=== PATIENT | male | born 1940 | race Caucasian/White ===

== ENCOUNTER 2025-08-30 15:29 | Inpatient (IN) ==
[2025-08-30 16:29] LABS: Basophils # (Auto) 0.02 K/mcL (0.00-0.30); Basophils % (Auto) 0.1 % (0.0-2.0); Eosinophils # (Auto) 0.16 K/mcL (0.00-0.70); Eosinophils % (Auto) 1.2 % (0.0-7.0); Hematocrit 52.5 % (40.1-51.0); Hemoglobin 17.5 g/dL (13.7-17.5); Lymphocytes # (Auto) 0.80 K/mcL (1.50-4.80); Lymphocytes % (Auto) 5.8 % (15.5-49.0); Mean Corpuscular HGB Conc 33.3 g/dL (31.0-36.0); Monocytes # (Auto) 2.24 K/mcL (0.10-0.90); Monocytes % (Auto) 16.1 % (1.0-12.0); Neutrophils % (Auto) 67.9 % (38.0-78.0); Platelet Count 112 K/mcL (140-440); RBC 5.09 M/mcL (4.63-6.08); WBC 13.9 K/mcL (4.5-11.0)
[2025-08-30 16:48] LABS: ALT/SGPT 57 U/L (<40); AST/SGOT 18 U/L (<40); Albumin 3.6 gm/dL (3.2-5.2); Albumin/Globulin Ratio 1.4 (1.0-2.3); Alkaline Phosphatase 67 U/L (39-117); Anion Gap 12.0 (8.0-16.0); Bilirubin,Total 1.2 mg/dL (0.1-1.0); Blood Urea Nitrogen 34 mg/dL (8-23); Calcium 9.5 mg/dL (8.6-10.4); Carbon Dioxide 27 mmol/L (22-30); Chloride 99 mmol/L (96-108); Globulin 2.5 gm/dL (2.2-3.7); Glucose 206 mg/dL (70-105); Potassium 4.6 mmol/L (3.3-5.1); Sodium 138 mmol/L (133-145)
[2025-08-30 16:49] LABS: Thyroid Stimulating Hormone 1.36 uIU/mL (0.27-5.01)
[2025-08-30 17:23] LABS: INR 1.1 (0.9-1.1); Prothrombin Time 15.0 sec (11.9-14.5)
[2025-08-30 18:17] LABS: Bilirubin,Urine NEGATIVE (Negative); Color,Urine LT. YELLOW; Glucose,Urine (UA) 250 mg/dL (Negative); Ketones,Urine NEGATIVE (Negative); Leukocyte Esterase,Urine NEGATIVE /uL (Negative); PH,Urine 6.5 (5.0-9.0); Protein,Urine TRACE mg/dL (Negative); Specific Gravity,Urine 1.010 (1.000-1.035); Urobilinogen,Urine 0.2 mg/dL
[2025-08-30] MEDS: DOXYCYCLINE 100 MG in DEXTROSE 5% IN WATER 100 ML IV ONE (18:47)
[2025-08-30] MEDS: FUROSEMIDE 40 MG/4 ML VIAL IV ONE (18:47)
[2025-08-30] MEDS ORDERED: MAG HYDROX/AL HYDROX/SIMETH 30 ML ORAL.SUSP PO PRN (20:58)
[2025-08-30] MEDS ORDERED: IPRATROPIUM/ALBUTEROL 3 ML AMPUL.NEB NEB PRN (20:58)
[2025-08-30] MEDS ORDERED: ONDANSETRON 4 MG/2 ML VIAL IV PRN (20:58)
[2025-08-30] MEDS: LACTATED RINGERS 1,000 ML IV SCH (21:06)
[2025-08-30] MEDS: 0.9 % SODIUM CHLORIDE 10 ML SYRINGE IV SCH (21:10)
[2025-08-30] MEDS: LEVOFLOXACIN 750 MG/150 ML BAG IV SCH (21:21)
[2025-08-30] MEDS: SENNOSIDES 1 TABLET PO SCH (21:26)
[2025-08-30] MEDS: APIXABAN 2.5 MG TABLET PO SCH (21:26)
[2025-08-30] MEDS: IPRATROPIUM/ALBUTEROL 3 ML AMPUL.NEB NEB SCH (22:24)
[2025-08-30] MEDS: METOPROLOL SUCCINATE 50 MG TAB.XL.24H PO SCH (22:52)
[2025-08-30] MEDS: METOPROLOL SUCCINATE 50 MG TAB.XL.24H PO ONE (23:14)
[2025-08-31] MEDS: METHOCARBAMOL 500 MG TABLET PO ONE (00:30)
[2025-08-31] MEDS: GABAPENTIN 100 MG CAPSULE PO ONE ×2 (00:31→00:32)
[2025-08-31] MEDS: MELATONIN 3 MG TABLET PO ONE ×2 (00:31)
[2025-08-31] MEDS: LACTATED RINGERS 500 ML IV ONE (03:17)
[2025-08-31 06:25] LABS: C-Reactive Protein 4.73 mg/dL (0.03-0.80)
[2025-08-31 06:28] LABS: ALT/SGPT 42 U/L (<40); AST/SGOT 17 U/L (<40); Albumin 3.0 gm/dL (3.2-5.2); Albumin/Globulin Ratio 1.4 (1.0-2.3); Alkaline Phosphatase 50 U/L (39-117); Anion Gap 10.0 (8.0-16.0); Bilirubin,Direct 0.6 mg/dL (<0.3); Bilirubin,Total 1.3 mg/dL (0.1-1.0); Blood Urea Nitrogen 33 mg/dL (8-23); Calcium 8.8 mg/dL (8.6-10.4); Carbon Dioxide 24 mmol/L (22-30); Chloride 102 mmol/L (96-108); Globulin 2.1 gm/dL (2.2-3.7); Glucose 165 mg/dL (70-105); Phosphorous 2.7 mg/dL (2.5-4.5); Potassium 4.3 mmol/L (3.3-5.1); Sodium 136 mmol/L (133-145); Triglycerides 184 mg/dL (<150); Uric Acid 8.3 mg/dL (2.5-8.0)
[2025-08-31 06:36] LABS: Basophils # (Auto) 0.02 K/mcL (0.00-0.30); Basophils % (Auto) 0.1 % (0.0-2.0); Eosinophils # (Auto) 0.09 K/mcL (0.00-0.70); Eosinophils % (Auto) 0.7 % (0.0-7.0); Hematocrit 47.3 % (40.1-51.0); Hemoglobin 16.0 g/dL (13.7-17.5); Lymphocytes # (Auto) 0.64 K/mcL (1.50-4.80); Lymphocytes % (Auto) 4.6 % (15.5-49.0); Mean Corpuscular HGB Conc 33.8 g/dL (31.0-36.0); Monocytes # (Auto) 2.37 K/mcL (0.10-0.90); Monocytes % (Auto) 17.2 % (1.0-12.0); Neutrophils % (Auto) 71.1 % (38.0-78.0); Platelet Count 101 K/mcL (140-440); RBC 4.62 M/mcL (4.63-6.08); WBC 13.8 K/mcL (4.5-11.0)
[2025-08-31] MEDS: LACTATED RINGERS 1,000 ML IV SCH (13:05)
[2025-08-31] MEDS: METHOCARBAMOL 500 MG TABLET PO SCH (15:10)
[2025-08-31] MEDS: GABAPENTIN 100 MG CAPSULE PO SCH (15:10)
[2025-09-01 06:43] LABS: ALT/SGPT 37 U/L (<40); AST/SGOT 21 U/L (<40); Albumin 3.2 gm/dL (3.2-5.2); Albumin/Globulin Ratio 1.3 (1.0-2.3); Alkaline Phosphatase 54 U/L (39-117); Anion Gap 9.0 (8.0-16.0); Bilirubin,Direct 0.5 mg/dL (<0.3); Bilirubin,Total 1.2 mg/dL (0.1-1.0); Blood Urea Nitrogen 25 mg/dL (8-23); Calcium 9.2 mg/dL (8.6-10.4); Carbon Dioxide 26 mmol/L (22-30); Chloride 99 mmol/L (96-108); Globulin 2.5 gm/dL (2.2-3.7); Glucose 147 mg/dL (70-105); Phosphorous 2.4 mg/dL (2.5-4.5); Potassium 5.0 mmol/L (3.3-5.1); Sodium 134 mmol/L (133-145); Triglycerides 167 mg/dL (<150); Uric Acid 6.6 mg/dL (2.5-8.0)
[2025-09-01] MEDS: IPRATROPIUM/ALBUTEROL 3 ML AMPUL.NEB NEB SCH ×2 (07:14→08:44)
[2025-09-01 07:29] LABS: Basophils # (Auto) 0.04 K/mcL (0.00-0.30); Basophils % (Auto) 0.2 % (0.0-2.0); Eosinophils # (Auto) 0.39 K/mcL (0.00-0.70); Eosinophils % (Auto) 2.3 % (0.0-7.0); Hematocrit 48.8 % (40.1-51.0); Hemoglobin 16.3 g/dL (13.7-17.5); Lymphocytes # (Auto) 0.61 K/mcL (1.50-4.80); Lymphocytes % (Auto) 3.5 % (15.5-49.0); Mean Corpuscular HGB Conc 33.4 g/dL (31.0-36.0); Monocytes # (Auto) 2.08 K/mcL (0.10-0.90); Monocytes % (Auto) 12.1 % (1.0-12.0); Neutrophils % (Auto) 78.4 % (38.0-78.0); Platelet Count 109 K/mcL (140-440); RBC 4.66 M/mcL (4.63-6.08); WBC 17.3 K/mcL (4.5-11.0)
[2025-09-01] MEDS: METHOCARBAMOL 1,000 MG/10 ML VIAL IV ONE (07:54)
[2025-09-01] MEDS: METHOCARBAMOL 1,000 MG/10 ML VIAL ONE (07:54)
[2025-09-01] MEDS: LACTATED RINGERS 1,000 ML IV ONE (07:55)
[2025-09-01] MEDS: MAGNESIUM SULFATE 2 GM/50 ML BAG IV ONE ×2 (08:52→08:56)
[2025-09-01] MEDS: ESCITALOPRAM 10 MG TABLET PO SCH (08:55)
[2025-09-01] MEDS: DIGOXIN 125 MCG TABLET PO SCH (08:55)
[2025-09-01] MEDS ORDERED: METOPROLOL TARTRATE 5 MG/5 ML VIAL IV PRN ×2 (08:59→09:15)
[2025-09-01] MEDS: LACTATED RINGERS 1,000 ML IV SCH (09:00)
[2025-09-01] MEDS: METOPROLOL TARTRATE 5 MG/5 ML VIAL IV ONE (09:15)
[2025-09-01] MEDS: DOXYCYCLINE 100 MG in DEXTROSE 5% IN WATER 100 ML IV SCH (09:32)
[2025-09-01] MEDS: cefTRIAXone 2 GM in DEXTROSE 5% IN WATER 50 ML IV SCH (09:33)
[2025-09-01] MEDS: METOPROLOL TARTRATE 5 MG/5 ML VIAL IV PRN (09:38)
[2025-09-01] MEDS: ATORVASTATIN 40 MG TABLET PO SCH (10:53)
[2025-09-01] MEDS: cefTRIAXone 1 GM VIAL IV SCH (12:45)
[2025-09-01] MEDS: POLYETHYLENE GLYCOL 3350 17 GM PACKET PO PRN (20:43)
[2025-09-01] MEDS: METOPROLOL SUCCINATE 50 MG TAB.XL.24H PO SCH (20:43)
[2025-09-02 06:35] LABS: Basophils # (Auto) 0.03 K/mcL (0.00-0.30); Basophils % (Auto) 0.2 % (0.0-2.0); Eosinophils # (Auto) 0.21 K/mcL (0.00-0.70); Eosinophils % (Auto) 1.3 % (0.0-7.0); Hematocrit 43.4 % (40.1-51.0); Hemoglobin 14.2 g/dL (13.7-17.5); Lymphocytes # (Auto) 0.52 K/mcL (1.50-4.80); Lymphocytes % (Auto) 3.3 % (15.5-49.0); Mean Corpuscular HGB Conc 32.7 g/dL (31.0-36.0); Monocytes # (Auto) 2.00 K/mcL (0.10-0.90); Monocytes % (Auto) 12.8 % (1.0-12.0); Neutrophils % (Auto) 80.0 % (38.0-78.0); Platelet Count 92 K/mcL (140-440); RBC 4.14 M/mcL (4.63-6.08); WBC 15.7 K/mcL (4.5-11.0)
[2025-09-02 06:53] LABS: ALT/SGPT 26 U/L (<40); AST/SGOT 14 U/L (<40); Albumin 2.8 gm/dL (3.2-5.2); Albumin/Globulin Ratio 1.3 (1.0-2.3); Alkaline Phosphatase 43 U/L (39-117); Anion Gap 7.0 (8.0-16.0); Bilirubin,Direct 0.6 mg/dL (<0.3); Bilirubin,Total 1.2 mg/dL (0.1-1.0); Blood Urea Nitrogen 20 mg/dL (8-23); Calcium 8.7 mg/dL (8.6-10.4); Carbon Dioxide 25 mmol/L (22-30); Chloride 102 mmol/L (96-108); Globulin 2.2 gm/dL (2.2-3.7); Glucose 149 mg/dL (70-105); Phosphorous 1.9 mg/dL (2.5-4.5); Potassium 4.5 mmol/L (3.3-5.1); Sodium 134 mmol/L (133-145); Triglycerides 88 mg/dL (<150); Uric Acid 5.8 mg/dL (2.5-8.0)
[2025-09-02] MEDS: ACETAMINOPHEN 325 MG TABLET PO PRN (14:11)
[2025-09-03 06:33] LABS: Basophils # (Auto) 0.07 K/mcL (0.00-0.30); Basophils % (Auto) 0.5 % (0.0-2.0); Eosinophils # (Auto) 0.29 K/mcL (0.00-0.70); Eosinophils % (Auto) 2.1 % (0.0-7.0); Hematocrit 41.3 % (40.1-51.0); Hemoglobin 13.6 g/dL (13.7-17.5); Lymphocytes # (Auto) 0.54 K/mcL (1.50-4.80); Lymphocytes % (Auto) 3.9 % (15.5-49.0); Mean Corpuscular HGB Conc 32.9 g/dL (31.0-36.0); Monocytes # (Auto) 1.93 K/mcL (0.10-0.90); Monocytes % (Auto) 13.9 % (1.0-12.0); Neutrophils % (Auto) 76.8 % (38.0-78.0); Platelet Count 101 K/mcL (140-440); RBC 3.93 M/mcL (4.63-6.08); WBC 13.8 K/mcL (4.5-11.0)
[2025-09-03 09:05] LABS: ALT/SGPT 24 U/L (<40); AST/SGOT 15 U/L (<40); Albumin 2.6 gm/dL (3.2-5.2); Albumin/Globulin Ratio 1.0 (1.0-2.3); Alkaline Phosphatase 45 U/L (39-117); Anion Gap 9.0 (8.0-16.0); Bilirubin,Direct 0.5 mg/dL (<0.3); Bilirubin,Total 1.0 mg/dL (0.1-1.0); Blood Urea Nitrogen 22 mg/dL (8-23); C-Reactive Protein 15.00 mg/dL (0.03-0.80); Calcium 8.8 mg/dL (8.6-10.4); Carbon Dioxide 23 mmol/L (22-30); Chloride 105 mmol/L (96-108); Globulin 2.5 gm/dL (2.2-3.7); Glucose 123 mg/dL (70-105); Phosphorous 2.0 mg/dL (2.5-4.5); Potassium 4.5 mmol/L (3.3-5.1); Sodium 137 mmol/L (133-145); Triglycerides 87 mg/dL (<150); Uric Acid 5.8 mg/dL (2.5-8.0)
[2025-09-03] MEDS: NEUTRA PHOS 1 PACKET PO ONE (12:23)
[2025-09-03] MEDS: SODIUM PHOSPHATE 30 MMOL in DEXTROSE 5% IN WATER 500 ML IV ONE (12:24)
[2025-09-03] MEDS: APIXABAN 2.5 MG TABLET PO SCH (21:35)
[2025-09-03] MEDS: MELATONIN 3 MG TABLET PO PRN (21:38)
[2025-09-04 05:55] LABS: Basophils # (Auto) 0.07 K/mcL (0.00-0.30); Basophils % (Auto) 0.5 % (0.0-2.0); Eosinophils # (Auto) 0.41 K/mcL (0.00-0.70); Eosinophils % (Auto) 3.2 % (0.0-7.0); Hematocrit 42.1 % (40.1-51.0); Hemoglobin 13.7 g/dL (13.7-17.5); Lymphocytes # (Auto) 0.83 K/mcL (1.50-4.80); Lymphocytes % (Auto) 6.4 % (15.5-49.0); Mean Corpuscular HGB Conc 32.5 g/dL (31.0-36.0); Monocytes # (Auto) 1.66 K/mcL (0.10-0.90); Monocytes % (Auto) 12.9 % (1.0-12.0); Neutrophils % (Auto) 73.0 % (38.0-78.0); Platelet Count 113 K/mcL (140-440); RBC 3.91 M/mcL (4.63-6.08); WBC 12.9 K/mcL (4.5-11.0)
[2025-09-04 06:22] LABS: ALT/SGPT 27 U/L (<40); AST/SGOT 16 U/L (<40); Albumin 2.7 gm/dL (3.2-5.2); Albumin/Globulin Ratio 1.0 (1.0-2.3); Alkaline Phosphatase 51 U/L (39-117); Anion Gap 12.0 (8.0-16.0); Bilirubin,Direct 0.5 mg/dL (<0.3); Bilirubin,Total 0.8 mg/dL (0.1-1.0); Blood Urea Nitrogen 22 mg/dL (8-23); Calcium 8.7 mg/dL (8.6-10.4); Carbon Dioxide 22 mmol/L (22-30); Chloride 103 mmol/L (96-108); Globulin 2.6 gm/dL (2.2-3.7); Glucose 142 mg/dL (70-105); Phosphorous 2.8 mg/dL (2.5-4.5); Potassium 4.4 mmol/L (3.3-5.1); Sodium 137 mmol/L (133-145); Triglycerides 95 mg/dL (<150); Uric Acid 5.8 mg/dL (2.5-8.0)
[2025-09-04] MEDS: FUROSEMIDE 40 MG/4 ML VIAL IV ONE (08:36)
[2025-09-04] MEDS: CARBOXYMETHYLCELLULOSE SODIUM 1 EACH DROPER.GEL OP PRN (08:38)
[2025-09-04 10:31] LABS: Digoxin 0.7 ng/mL
[2025-09-05 06:17] LABS: Basophils # (Auto) 0.08 K/mcL (0.00-0.30); Basophils % (Auto) 0.6 % (0.0-2.0); Eosinophils # (Auto) 0.35 K/mcL (0.00-0.70); Eosinophils % (Auto) 2.7 % (0.0-7.0); Hematocrit 39.9 % (40.1-51.0); Hemoglobin 13.3 g/dL (13.7-17.5); Lymphocytes # (Auto) 0.67 K/mcL (1.50-4.80); Lymphocytes % (Auto) 5.1 % (15.5-49.0); Mean Corpuscular HGB Conc 33.3 g/dL (31.0-36.0); Monocytes # (Auto) 1.71 K/mcL (0.10-0.90); Monocytes % (Auto) 13.1 % (1.0-12.0); Neutrophils % (Auto) 74.1 % (38.0-78.0); Platelet Count 132 K/mcL (140-440); RBC 3.82 M/mcL (4.63-6.08); WBC 13.1 K/mcL (4.5-11.0)
[2025-09-05 06:41] LABS: ALT/SGPT 22 U/L (<40); AST/SGOT 12 U/L (<40); Albumin 2.7 gm/dL (3.2-5.2); Albumin/Globulin Ratio 1.1 (1.0-2.3); Alkaline Phosphatase 54 U/L (39-117); Anion Gap 9.0 (8.0-16.0); Bilirubin,Direct 0.3 mg/dL (<0.3); Bilirubin,Total 0.6 mg/dL (0.1-1.0); Blood Urea Nitrogen 23 mg/dL (8-23); C-Reactive Protein 9.44 mg/dL (0.03-0.80); Calcium 8.7 mg/dL (8.6-10.4); Carbon Dioxide 25 mmol/L (22-30); Chloride 102 mmol/L (96-108); Globulin 2.5 gm/dL (2.2-3.7); Glucose 128 mg/dL (70-105); Phosphorous 2.6 mg/dL (2.5-4.5); Potassium 4.1 mmol/L (3.3-5.1); Sodium 136 mmol/L (133-145); Triglycerides 98 mg/dL (<150); Uric Acid 5.7 mg/dL (2.5-8.0)
[2025-09-05 07:54] VITALS: TEMP 98.4; O2SAT 95
[2025-09-05] MEDS: TORSEMIDE 20 MG TABLET PO SCH (08:33)
[2025-09-05 08:58] LABS: Anisocytosis 1+ (None Seen); RBC Morphology ABNORMAL (Normal)
[2025-09-05] MEDS: DOXYCYCLINE HYCLATE 100 MG TABLET.ORL PO SCH (11:06)
== END 2025-09-05 14:35 | DRG 871 ==
LOC: ED 15:29 → MEDSUR 20:32 → ICU 09-01 11:53 → MEDSUR 09-04 18:36
PROVIDERS: ADMIT Student in an Organized Health Care Education/Training Program; ATTEND Internal Medicine